=== PATIENT | female | born 1985 | race Caucasian/White ===

== ENCOUNTER 2017-09-25 09:24 | Emergency (ER) | payer OTHER ==
[~2017-09-25] VITALS: Ht 170.2 cm; Wt 129.3 kg
[2017-09-25 09:28] VITALS: Ht 170.2 cm; Wt 129.3 kg
[2017-09-25 10:11] VITALS: BP 147/98
== END 2017-09-25 10:11 | disposition home or self-care (01) ==
LOC: ED 09:24
DX: L03.114 Cellulitis of left upper limb (principal)

== ENCOUNTER 2017-12-18 11:36 | Emergency (ER) | payer OTHER ==
[~2017-12-18] VITALS: Ht 170.2 cm; Wt 131.5 kg
[2017-12-18 11:40] VITALS: Ht 170.2 cm; Wt 131.5 kg
[2017-12-18 13:45] VITALS: BP 140/72
== END 2017-12-18 13:45 | disposition home or self-care (01) ==
LOC: ED 11:36
DX: J30.9 Allergic rhinitis, unspecified (principal); E66.9 Obesity, unspecified; Z68.42 Body mass index [BMI] 45.0-49.9, adult

== ENCOUNTER 2019-01-12 12:09 | Emergency (ER) | payer OTHER ==
[~2019-01-12] VITALS: Ht 170.2 cm; Wt 129.7 kg
[2019-01-12 12:30] VITALS: BP 168/80; Ht 170.2 cm; Wt 129.7 kg
== END 2019-01-12 14:20 | disposition left against medical advice (07) ==
LOC: ED 12:09
DX: Z53.21 Procedure and treatment not carried out due to patient leaving prior to being seen by health care provider (principal)

== ENCOUNTER 2019-10-21 11:11 | Emergency (ER) | payer OTHER, SELFPAY ==
[~2019-10-21] VITALS: Ht 170.2 cm; Wt 116.6 kg
[2019-10-21 11:15] VITALS: BP 128/85; Ht 170.2 cm; Wt 116.6 kg
== END 2019-10-21 13:15 | disposition home or self-care (01) ==
LOC: ED 11:11
DX: Z20.828 Contact with and (suspected) exposure to other viral communicable diseases (principal); Z90.49 Acquired absence of other specified parts of digestive tract; Z98.890 Other specified postprocedural states
CPT/HCPCS: U0003-CS